=== PATIENT | female | born 1980 | race Caucasian/White ===

== ENCOUNTER 2020-02-18 11:24 | Outpatient (CLI) | payer BC, OTHER, SELFPAY ==
[2020-02-18 12:08] LABS: Basophils Absolute Auto 0.03 K/mm3 (0.00-0.10); Basophils Percent Auto 0.5 % (0.0-1.0); Eosinophils Absolute Auto 0.33 K/mm3 (0.02-0.50); Eosinophils Percent Auto 5.6 % (1.0-6.0); Hematocrit 44.1 % (35.0-49.0); Immature Granulocyte Absolute 0.01 K/mm3 (0.00-0.00); Immature Granulocyte Percent A 0.2 % (0.0-0.0); Lymphocytes Absolute Auto 1.76 K/mm3 (1.10-4.50); Lymphocytes Percent Auto 29.9 % (18.0-42.0); Mean Corpuscular HGB Conc 31.7 g/dL (32.0-36.0); Mean Corpuscular Hemoglobin 29.7 pg (27.0-31.0); Mean Corpuscular Volume 93.6 fL (78.0-102.0); Monocytes Absolute Auto 0.31 K/mm3 (0.10-0.90); Monocytes Percent Auto 5.3 % (2.0-11.0); Neutrophils Absolute Auto 3.4 K/mm3 (1.7-7.2); Neutrophils Percent Auto 58.5 % (50.0-70.0); Platelet Count Result 234 K/mm3 (150-420); Red Blood Count 4.71 M/mm3 (4.20-5.40); Red Cell Distribution Width 11.9 % (11.6-14.4); White Blood Count 5.9 K/mm3 (4.8-10.8)
[2020-02-18 12:51] LABS: Hemoglobin A1C 5.8 % (<5.7)
[2020-02-18 12:56] LABS: Rheumatoid Factor Screen Negative (Negative)
[2020-02-18 13:27] LABS: Alanine Aminotransferase 24 U/L (14-59); Albumin Level 3.8 g/dL (3.4-5.0); Alkaline Phosphatase 60 U/L (46-116); Anion Gap 11 mmol/L (8-16); Aspartate Amino Transferase 14 U/L (15-37); Bilirubin,Total 0.4 mg/dL (0.00-1.00); Blood Urea Nitrogen 10 mg/dL (7-18); CRP 1.2 mg/dL (0.0-0.9); Calcium 9.1 mg/dL (8.5-10.1); Carbon Dioxide 26 mmol/L (21-32); Chloride 103 mmol/L (98-108); Estimated Glomerular Filt Rate > 60; Free T4 Free Thyroxine 1.14 ng/dL (0.76-1.46); Glucose 93 mg/dL (70-99); Osmolality Calculated 289 mOsm/kg (285-295); Potassium 4.2 mmol/L (3.5-5.1); Sodium 140 mmol/L (136-145); Vitamin B12 699 pg/mL (193-986)
[2020-02-21 07:00] LABS: RPR Screen Non-Reactive (Non-Reactive); Vitamin D 25 Hydroxy 42 ng/mL (30-100)
[2020-02-22 14:34] LABS: Lyme Disease Ab (IgM), Blot Negative (Negative); Lyme Disease Ab(IgG), Blot Negative (Negative)
== END 2020-02-18 11:25 | disposition home or self-care (01) ==
PROVIDERS: PCP Nurse Practitioner Family; Visit Provider Nurse Practitioner Family
DX: R53.83 Other fatigue (principal); E11.9 Type 2 diabetes mellitus without complications
CPT/HCPCS: 36415; 80053; 82306; 82607; 83036; 84439; 84443; 85025; 86038; 86140; 86430; 86592; 86617

== ENCOUNTER 2020-05-12 15:29 | Outpatient (CLI) | payer BC, OTHER, SELFPAY ==
[2020-05-12] MEDS: SODIUM CHLORIDE 0.9% IV 1,000 ML 999 ML IV CONT (16:32)
[2020-05-12] MEDS: METOCLOPRAMIDE HCL INJ 10 MG/2 ML VIAL IV PUSH (16:33)
[2020-05-12] MEDS: DEXAMETHASONE SOD PHOS INJ 4 MG/ML VIAL IV PUSH (16:34)
--- NOTE | 2020-05-12 16:49 | PC.NURSE ---
20 gauge IV started in right AC. Patient tolerated well. Medication administered per MD orders, NS bolus started.
[2020-05-12] MEDS: DIVALPROEX SODIUM 250 MG TABEC PO (16:54)
--- NOTE | 2020-05-12 16:59 | PC.NURSE ---
Patient sitting in chair. IV infusing without difficulty. Denies any problems.
--- NOTE | 2020-05-12 17:48 | PC.NURSE ---
Normal Saline IV fluids completed. Patient states she feels a little better and less nausea. IV removed without difficulty. Pressure applied to site. No active bleeding observed. Area covered with 2x2 and taped down.
== END 2020-05-12 15:30 | disposition home or self-care (01) ==
PROVIDERS: PCP Nurse Practitioner Family; Visit Provider Nurse Practitioner Family
DX: G43.909 Migraine, unspecified, not intractable, without status migrainosus (principal)
CPT/HCPCS: 96365; A9270; J1100; J2765; J7030

== ENCOUNTER 2020-05-17 08:28 | Outpatient (CLI) | payer BC, OTHER, SELFPAY ==
--- NOTE | ~2020-05-17 | MR_ITS ---
EXAMINATION: MR brain IAC wo/w con EXAM DATE: 05/17/2020 10:57 INDICATION: G43.909 - Migraine, unspecified, not intractable, without status migrainosus. TECHNIQUE: Multi-sequential, multiplanar MR images of the brain, brainstem, internal auditory canals were obtained without contrast. Whole brain sagittal T1, axial diffusion, gradient echo (T2*), T1, T 2, FLAIR sequences obtained. High resolution coronal 3-D FIESTA, coronal T1 FSE, axial T1 FSPGR of t he internal auditory canals. Patient was then injected with 10 cc Multihance contrast intravenously. Postcontrast axial and coronal T1 weighted whole brain, axial and coronal high resolution T1 IAC seq uences obtained. Comparison is made to prior examination from 12/06/2014. FINDINGS: No evidence of mastoid or middle ear opacification. The 7th/8th cranial nerve complexes a re symmetric, normal in course and caliber. No cerebellopontine angle masses. Posterior fossa unrem arkable. Mild to moderate bilateral ethmoid and maxillary sinus mucoperiosteal thickening. There are no areas of restricted diffusion to suggest acute infarction. There is no acute hemorrhage seen on the T2*, a hemosiderin sensitive sequence. No intraparenchymal brain mass. The ventricles a re normal in size. There are no extra-axial collections. Flow voids are seen in the cerebral arteri es on the T2-weighted sequences consistent with their expected patency. The orbits are unremarkable. Soft tissue is unremarkable. There are no areas of abnormal enhancement on the postcontrast image s. IMPRESSION: 1. Mild to moderate paranasal sinus mucoperiosteal thickening. 2. Normal brain. Reviewed, dictated and finalized at location A. 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
[2020-05-17 09:13] LABS: Estimated Glomerular Filt Rate > 60
== END 2020-05-17 08:29 | disposition home or self-care (01) ==
LOC: CHSIMG 08:33
PROVIDERS: PCP Nurse Practitioner Family; Visit Provider Nurse Practitioner Family
DX: G43.909 Migraine, unspecified, not intractable, without status migrainosus (principal); R47.9 Unspecified speech disturbances
CPT/HCPCS: 70553; A9577

== ENCOUNTER 2020-06-06 08:32 | Outpatient (CLI) | payer BC, OTHER, SELFPAY ==
--- NOTE | 2020-06-07 10:57 | WPDNEUROLOGY ---
Neurology EEG Report General Information Date of Study: 06/06/20 TEST eeg DIAGNOSIS migraines CONDITION OF RECORDING awake and drowsy EEG NUMBER [id number] CLINICAL HISTORY patient reported she has intermittent episodes of migraines over the right side of her head down to her ear along with severe stuttering. Says it is worse if she is standing or sitting up. Says it goes away if she is laying flat. EEG DESCRIPTION whole record consist of diffuse very low voltage beta activity throughout the tracing. Photic stimulation produced no changes. Hyperventilation not done. non paroxysmal. non focal. non lateralizing. IMPRESSION no abnormalities noted in this low voltage fast record
== END 2020-06-06 08:33 | disposition home or self-care (01) ==
PROVIDERS: PCP Nurse Practitioner Family; Visit Provider Nurse Practitioner Family
DX: G43.909 Migraine, unspecified, not intractable, without status migrainosus (principal)
CPT/HCPCS: 95816

== ENCOUNTER 2020-06-11 14:39 | Outpatient (CLI) | payer BC, OTHER, SELFPAY ==
--- NOTE | ~2020-06-11 | XR_ITS ---
EXAMINATION: XR hand LT min 3V DATE: 06/11/2020 14:57 INDICATION: Left hand lump and pain at the metacarpophalangeal joint. TECHNIQUE: 3 views of left hand were obtained. COMPARISON: None. FINDINGS: Bone alignment is normal. No fracture. Joint spaces are well maintained. IMPRESSION: 1. Normal left hand. Reviewed, dictated and finalized at location B. 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 Normal left hand.
== END 2020-06-11 14:40 | disposition home or self-care (01) ==
PROVIDERS: PCP Nurse Practitioner Family; Visit Provider Nurse Practitioner Family
DX: R22.32 Localized swelling, mass and lump, left upper limb (principal)
CPT/HCPCS: 73130

== ENCOUNTER 2021-07-23 08:32 | Outpatient (CLI) | payer BC, OTHER, SELFPAY ==
--- NOTE | 2021-07-27 11:01 | WPDHOLTEREM ---
Holter/Event Monitor Holter/Event Monitor Date of procedure: 07/23/21 Holter/Event Procedure: 48 Hr Holter Monitor Indications: Chest pain Conclusion: 1. 48 hour holter monitor on 07/23/21. 2. Underlying rhythm is sinus rhythm. HR range 50-117 bpm; average HR 70 bpm. 3. There are 56 premature supraventricular complexes and 3 supraventricular couplets. No supraventricular tachycardia. 4. There are 544 premature ventricular complexes, 6 ventricular bigeminy and 9 ventricular trigeminy. No ventricular tachycardia. 5. No sinoatrial or atrioventricular blocks. No significant pauses greater than 2 seconds. 6. Patient reports symptoms of chest pains and shortness of breath which demonstrate sinus rhythm, HR range 64-109 bpm and one PVC.
== END 2021-07-23 08:33 | disposition home or self-care (01) ==
LOC: CHSCARD 08:34
PROVIDERS: PCP Nurse Practitioner Family; Visit Provider Nurse Practitioner Family
DX: R07.9 Chest pain, unspecified (principal)
CPT/HCPCS: 93225; 93226

== ENCOUNTER 2021-08-24 13:05 | Outpatient (CLI) | payer BC, SELFPAY ==
[2021-08-24 13:44] LABS: Anion Gap 9 mmol/L (8-16); Blood Urea Nitrogen 17 mg/dL (7-18); Calcium 9.1 mg/dL (8.5-10.1); Carbon Dioxide 28 mmol/L (21-32); Chloride 100 mmol/L (98-108); Estimated Glomerular Filt Rate 60; Glucose 83 mg/dL (70-99); Osmolality Calculated 284 mOsm/kg (285-295); Sodium 137 mmol/L (136-145)
== END 2021-08-24 13:06 | disposition home or self-care (01) ==
LOC: CHSLAB 13:05
PROVIDERS: PCP Nurse Practitioner Family
DX: R07.9 Chest pain, unspecified (principal); R00.2 Palpitations
CPT/HCPCS: 36415; 80048

== ENCOUNTER 2021-11-16 15:32 | Outpatient (CLI) | payer BC, SELFPAY ==
[2021-11-16 16:06] LABS: Basophils Absolute Auto 0.05 K/mm3 (0.00-0.10); Basophils Percent Auto 0.7 % (0.0-1.0); Eosinophils Absolute Auto 0.35 K/mm3 (0.02-0.50); Eosinophils Percent Auto 5.1 % (1.0-6.0); Hematocrit 42.9 % (35.0-49.0); Hemoglobin 13.9 g/dL (12.0-15.0); Immature Granulocyte Absolute 0.01 K/mm3 (0.00-0.00); Immature Granulocyte Percent A 0.1 % (0.0-0.0); Lymphocytes Absolute Auto 2.24 K/mm3 (1.10-4.50); Lymphocytes Percent Auto 32.6 % (18.0-42.0); Mean Corpuscular HGB Conc 32.4 g/dL (32.0-36.0); Mean Corpuscular Hemoglobin 30.1 pg (27.0-31.0); Mean Corpuscular Volume 92.9 fL (78.0-102.0); Mean Platelet Volume 10.8 fl (9.2-11.8); Monocytes Absolute Auto 0.44 K/mm3 (0.10-0.90); Monocytes Percent Auto 6.4 % (2.0-11.0); Neutrophils Absolute Auto 3.8 K/mm3 (1.7-7.2); Neutrophils Percent Auto 55.1 % (50.0-70.0); Platelet Count Result 334 K/mm3 (150-420); Red Blood Count 4.62 M/mm3 (4.20-5.40); Red Cell Distribution Width 12.2 % (11.6-14.4); White Blood Count 6.9 K/mm3 (4.8-10.8)
[2021-11-16 16:17] LABS: Alanine Aminotransferase 12 U/L (14-59); Albumin Level 3.9 g/dL (3.4-5.0); Alkaline Phosphatase 66 U/L (46-116); Anion Gap 9 mmol/L (8-16); Aspartate Amino Transferase 13 U/L (15-37); Bilirubin,Total 0.3 mg/dL (0.00-1.00); Blood Urea Nitrogen 15 mg/dL (7-18); CRP 2.1 mg/dL (0.0-0.9); Calcium 9.6 mg/dL (8.5-10.1); Carbon Dioxide 29 mmol/L (21-32); Chloride 100 mmol/L (98-108); Estimated Glomerular Filt Rate > 60; Glucose 95 mg/dL (70-99); Osmolality Calculated 286 mOsm/kg (285-295); Potassium 3.5 mmol/L (3.5-5.1); Sodium 138 mmol/L (136-145); Total Protein 8.6 g/dL (6.4-8.2)
[2021-11-16 16:20] LABS: Appearance Urine Clear (Clear); Bilirubin Urine Negative (Negative); Color Urine Yellow (Yellow); Glucose Urine UA Negative (Negative); Ketones Urine Negative (Negative); Leukocyte Esterase Ur Negative LEU/UL (Negative); Nitrate Urine Negative (Negative); Protein Urine Negative (Negative); Urobilinogen Urine 0.2 mg/dL (0.2-1.0); pH Urine 6.5 (5.0-8.0)
[2021-11-16 16:28] LABS: Hemoglobin A1C 5.3 % (<5.7)
[2021-11-16 16:30] LABS: Add Urine Microscopic? YES; Bacteria Urine Trace /hpf; Blood Urine Trace-Intact (Negative); RBC Urine 0-2 /hpf (0-2); Squamous Epithelial Cell Urine Rare /hpf (Few); WBC Urine None seen /hpf (0-3)
[2021-11-16 16:31] LABS: Mucus Urine Moderate /lpf
[2021-11-18 14:06] LABS: Vitamin D 25 Hydroxy 38 ng/mL (30-100)
== END 2021-11-16 15:33 | disposition home or self-care (01) ==
LOC: CHSLAB 15:37
PROVIDERS: PCP Nurse Practitioner Family; Visit Provider Nurse Practitioner Family
DX: Z00.00 Encounter for general adult medical examination without abnormal findings (principal); M25.50 Pain in unspecified joint; M79.672 Pain in left foot; R53.83 Other fatigue; E11.9 Type 2 diabetes mellitus without complications; Z87.898 Personal history of other specified conditions; Z79.899 Other long term (current) drug therapy
CPT/HCPCS: 36415; 80053; 81001; 82306; 83036; 85025; 86038; 86140

== ENCOUNTER 2022-07-13 11:37 | Outpatient (CLI) | payer BC, SELFPAY ==
[2022-07-13 12:59] LABS: HIV 1 P24 AG Negative (Negative); HIV 1/2 AB Negative (Negative)
[2022-07-15 17:43] LABS: Vitamin D 25 Hydroxy 44 ng/mL (30-100)
[2022-07-16 13:21] LABS: RPR Screen Non-Reactive (Non-Reactive)
[2022-07-17 13:22] LABS: Hepatitis C Signal to Cutoff 0.21 ratio (<1.00); Hepatitis C Virus Antibody Nonreactive (Nonreactive)
[2022-07-20 10:39] LABS: HSV 1 IgM Screen Negative (Negative); HSV 2 IgM Screen Negative (Negative)
== END 2022-07-13 11:38 | disposition home or self-care (01) ==
LOC: CHSLAB 11:39
PROVIDERS: PCP Nurse Practitioner Family; Visit Provider Nurse Practitioner Family
DX: Z20.2 Contact with and (suspected) exposure to infections with a predominantly sexual mode of transmission (principal); Z79.899 Other long term (current) drug therapy
CPT/HCPCS: 36415; 82306; 86592; 86695; 86696; 86703; 86803; 87210; 87491; 87591; 87661

== ENCOUNTER 2022-10-09 13:44 | Outpatient (CLI) | payer BC, OTHER, SELFPAY | END 2022-10-09 13:45 | disposition home or self-care (01) | LOC: CHSLAB 13:46 | PROVIDERS: PCP Nurse Practitioner Family; Visit Provider Nurse Practitioner Family | DX: A59.9 Trichomoniasis, unspecified (principal) | CPT/HCPCS: 87661 ==

== ENCOUNTER 2022-10-21 09:01 | Outpatient (CLI) | payer BC, OTHER, SELFPAY ==
[2022-10-25 15:13] LABS: RPR Screen Non-Reactive (Non-Reactive)
== END 2022-10-21 09:02 | disposition home or self-care (01) ==
LOC: CHSLAB 09:04
PROVIDERS: PCP Nurse Practitioner Family; Visit Provider Nurse Practitioner Family
DX: N89.8 Other specified noninflammatory disorders of vagina (principal)
CPT/HCPCS: 36415; 86592; 87491; 87591; 87661

== ENCOUNTER 2023-04-20 11:47 | Outpatient (CLI) | payer BC, OTHER, SELFPAY ==
--- NOTE | ~2023-04-20 | US_ITS ---
EXAMINATION: US soft tissue groin RT DATE: 04/20/2023 12:17 INDICATION: Palpable lump at the medial right thigh/groin TECHNIQUE: Multiple grayscale and Doppler ultrasound images of the region of concern at the medial ri t thigh/groin were obtained. COMPARISON: None FINDINGS: There is an approximately 2.5 cm diameter region of mild thickening and increased echogenicity of the subcutaneous fat at the region of concern which is likely inflammatory in etiology. Focal stranding with minimal amount of hypoechoic fluid tracking between the lobules of subcutaneous fat at the regio n of concern. No loculated fluid collections, soft tissue masses or evident shadowing foreign bodies identified. IMPRESSION: 1. Small focus of stranding and thickening in the subcutaneous fat at the region of concern which is likely inflammatory in etiology. No abnormal masses or loculated fluid collections identified. Reviewed, dictated and finalized at location A. IMPRESSION: 1. Small focus of stranding and thickening in the subcutaneous fat at the regio n of concern which is likely inflammatory in etiology. No abnormal masses or lo culated fluid collections identified.
== END 2023-04-20 11:48 | disposition home or self-care (01) ==
PROVIDERS: PCP Nurse Practitioner Family; Visit Provider Nurse Practitioner Family
DX: R19.09 Other intra-abdominal and pelvic swelling, mass and lump (principal)
CPT/HCPCS: 76882

== ENCOUNTER 2023-08-11 10:38 | Outpatient (CLI) | payer BC, OTHER, SELFPAY ==
--- NOTE | ~2023-08-11 | US_ITS ---
EXAMINATION: US pelvic complete w TV DATE: 08/11/2023 11:56 INDICATION: Noninflammatory disorders of the cervix TECHNIQUE: Multiple transabdominal and endovaginal sonographic images of the pelvis were obtained. COMPARISON: None. FINDINGS: The uterus measures 9.0 x 6.2 x 4.0 cm. There appears to be an approximately 2.8 x 0.9 cm a sugar of soft tissue in the endocervical canal. The endometrial complex measures 7 mm. The right ovary is not visualized however no right adnexal abnormality is seen. The left ovary measures 2.2 x 2.3 x 2 .3 cm. There is no free fluid in the pelvis. IMPRESSION: 1. Possible area of soft tissue in the endocervical canal. Direct visualization is recommended. Reviewed, dictated and finalized at location L. 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
== END 2023-08-11 10:39 | disposition home or self-care (01) ==
PROVIDERS: PCP Nurse Practitioner Family; Visit Provider Nurse Practitioner Family
DX: N92.6 Irregular menstruation, unspecified (principal); N88.9 Noninflammatory disorder of cervix uteri, unspecified; Z12.4 Encounter for screening for malignant neoplasm of cervix; Z11.51 Encounter for screening for human papillomavirus (HPV); Z11.8 Encounter for screening for other infectious and parasitic diseases
CPT/HCPCS: 76830; 76856; 87491; 87591; 87624; 88175; G0145

== ENCOUNTER 2023-08-31 18:33 | Outpatient (CLI) | payer BC, OTHER, SELFPAY ==
[2023-08-31 19:24] LABS: Basophils Absolute Auto 0.04 K/mm3 (0.00-0.10); Basophils Percent Auto 0.5 % (0.0-1.0); Eosinophils Absolute Auto 0.22 K/mm3 (0.02-0.50); Eosinophils Percent Auto 2.9 % (1.0-6.0); Hematocrit 40.1 % (35.0-49.0); Hemoglobin 13.3 g/dL (12.0-15.0); Immature Granulocyte Absolute 0.01 K/mm3 (0.00-0.00); Immature Granulocyte Percent A 0.1 % (0.0-0.0); Lymphocytes Absolute Auto 3.04 K/mm3 (1.10-4.50); Lymphocytes Percent Auto 39.7 % (18.0-42.0); Mean Corpuscular HGB Conc 33.2 g/dL (32.0-36.0); Mean Corpuscular Hemoglobin 29.6 pg (27.0-31.0); Mean Corpuscular Volume 89.3 fL (78.0-102.0); Mean Platelet Volume 10.9 fl (9.2-11.8); Monocytes Absolute Auto 0.48 K/mm3 (0.10-0.90); Monocytes Percent Auto 6.3 % (2.0-11.0); Neutrophils Absolute Auto 3.9 K/mm3 (1.7-7.2); Neutrophils Percent Auto 50.5 % (50.0-70.0); Platelet Count Result 322 K/mm3 (150-420); Red Blood Count 4.49 M/mm3 (4.20-5.40); Red Cell Distribution Width 12.2 % (11.6-14.4); White Blood Count 7.7 K/mm3 (4.8-10.8)
[2023-08-31 20:33] LABS: Erythrocyte Sedimentation Rate 28 mm/hr (0-15); Rheumatoid Factor Screen Negative (Negative)
[2023-08-31 20:40] LABS: Alanine Aminotransferase 23 U/L (14-59); Albumin Level 3.9 g/dL (3.4-5.0); Alkaline Phosphatase 67 U/L (46-116); Anion Gap 13 mmol/L (8-16); Aspartate Amino Transferase 12 U/L (15-37); Bilirubin,Total 0.3 mg/dL (0.00-1.00); Blood Urea Nitrogen 18 mg/dL (7-18); CRP 2.3 mg/dL (0.0-0.9); Calcium 9.2 mg/dL (8.5-10.1); Carbon Dioxide 27 mmol/L (21-32); Chloride 99 mmol/L (98-108); Estimated Glomerular Filt Rate > 60; Ferritin 172 ng/mL (8-252); Glucose 87 mg/dL (70-99); Osmolality Calculated 288 mOsm/kg (285-295); Sodium 139 mmol/L (136-145); Total Protein 7.9 g/dL (6.4-8.2)
[2023-08-31 21:04] LABS: Thyroid Stimulating Hormone Reflex 3.56 u/IU/mL (0.36-3.74)
[2023-09-05 04:55] LABS: Cyclic Citrullinated Peptide <16 Units (<20); Lupus dRVVT Confirmation Positive (Negative); Lupus dRVVT Screen 48 sec (<=45); PTT-LA Screen 36 sec (<=40)
[2023-09-06 22:32] LABS: ANA Pattern Nuclear, Speckled; ANA Titer 1:40 (Negative); Anti Nuclear Antibody Titer 1:40 (Negative)
[2023-09-07 12:22] LABS: Immunoglobulin A 294 mg/dL (47-310); TTG IGA AB <1.0 U/mL (<15.0)
== END 2023-08-31 18:34 | disposition home or self-care (01) ==
LOC: CHSLAB 18:38
PROVIDERS: PCP Nurse Practitioner Family; Visit Provider Internal Medicine Rheumatology
DX: G43.809 Other migraine, not intractable, without status migrainosus (principal); M25.40 Effusion, unspecified joint; R53.83 Other fatigue
CPT/HCPCS: 36415; 80053; 82728; 82784; 83516; 84443; 85025; 85597; 85613; 85652; 85730; 86038; 86039; 86140; 86147; 86200; 86430